=== PATIENT | female | born 1995 | race Caucasian/White ===

== ENCOUNTER 2017-07-11 16:17 | Outpatient (CLI) | payer OTHER ==
--- NOTE | 2017-07-11 17:22 | RAD ---
LUMBAR SPINE THREE VIEWS: History: Low back pain. FINDINGS: There are five lumbar type vertebrae. Pedicles are intact. Vertebral body height and alignment are ma intained. On the lateral view there is mild leftward convex rotatory scoliotic curvature. Mild degene rative changes of the lower lumbar spine are apparent. IMPRESSION: Mild lumbar spondylosis. No evidence of compression fracture. POS: [facility]
== END 2017-07-11 16:18 | disposition home or self-care (01) ==
LOC: RAD 16:17
PROVIDERS: ATTEND Family Medicine
DX: M54.9 Dorsalgia, unspecified (principal); M47.816 Spondylosis without myelopathy or radiculopathy, lumbar region
CPT/HCPCS: 72100